=== PATIENT | female | born 1940 | race Caucasian/White ===

== ENCOUNTER 2018-07-19 08:46 | Emergency (ER) | payer MEDICARE, OTHER ==
[2018-07-19 08:59] VITALS: BP 146/71
--- NOTE | 2018-07-19 09:21 | UC ---
Lower Extremity/Ankle HPI - HPI Summary HPI Summary: 78 -year-old female who has a small callus on the medial aspect of her right second toe which has caused the toe to become hot red tender and swollen over the past 24 hours. She states it appears much better today. She denies any fever or chills and no red streaks. She has a [id number] diabetic. She also has a history of gout in the same toe over the past month however states this is different from gout. - History of Current Complaint Chief Complaint: UCLowerExtremity Stated Complaint: RT TOE INFECTION Time Seen by Provider: 07/19/18 09:20 Hx Obtained From: Patient ?: No Onset/Duration: Gradual Onset Severity Initially: Moderate Severity Currently: Mild Pain Intensity: 5 Aggravating Factor(s): Ambulation Alleviating Factor(s): Rest, Elevation Able to Bear Weight: Yes - Risk Factors Gout Risk Factors: Diabetes - Patient has a history of gout. - Allergies/Home Medications Allergies/Adverse Reactions: Allergies Allergy/AdvReac Type Severity Reaction Status Date / Time niacin Allergy Intermediate Flushing Verified 07/19/18 09:00 [id number]-Ogl Reductase Allergy Mild body aches Verified 07/19/18 09:00 Inhibitor bee venom protein (honey bee) Allergy Swelling Verified 07/19/18 09:01 influenza A (H1N1) virus Allergy Fatigue Verified 07/19/18 09:01 vaccine [id number] [From influenza A (H1N1)] Home Medications: Home Medications Calcium Carbonate [Calcium] 500 mg PO DAILY WITH MEAL 07/19/18 [History Confirmed 07/19/18] Dulaglutide [Trulicity] 1.5 mg SQ DAILY WITH MEAL 07/19/18 [History Confirmed ] Gout 1 mg PO SEE INSTRUCTIONS 07/19/18 [History Confirmed 07/19/18] Losartan/Hydrochlorothiazide [Losartan Potassium/Hydroc 100-25 mg] 1 tab PO DAILY WITH MEAL 07/19/18 [History Confirmed 07/19/18] Pravastatin (NF) [Pravachol (NF)] 20 mg PO 1700 07/19/18 [History Confirmed ] metFORMIN* [Glucophage 1000 MG TAB *] 2,000 mg PO 0800,1700 07/19/18 [History Confirmed 07/19/18] PMH/Surg Hx/FS Hx/Imm Hx Previously Healthy: Yes Endocrine History: Diabetes Cardiovascular History: Hypertension - Surgical History Surgical History: Yes Surgery Procedure, Year, and Place: Hysterectomy. cyst on spine - Family History Known Family History: Positive: Non-Contributory - Social History Alcohol Use: Occasionally Substance Use Type: None Smoking Status (MU): Never Smoked Tobacco Review of Systems All Other Systems Reviewed And Are Negative: Yes Skin: Positive: Other - Right second toe hot red and tender swollen last evening however has improved today according to the patient. Is Patient Immunocompromised?: No Physical Exam Triage Information Reviewed: Yes Appearance: Well-Appearing, No Pain Distress, Well-Nourished Vital Signs: Initial Vital Signs Temp 98.0 F 07/19/18 08:54 Pulse 95 07/19/18 08:54 Resp 20 07/19/18 08:54 BP 146/71 07/19/18 08:54 Pulse Ox 100 07/19/18 08:54 Vital Signs Reviewed: Yes Musculoskeletal Exam: Normal Neurological Exam: Normal Psychological Exam: Normal Skin: Positive: Other - Right second toe is mildly erythematous but not warm to touch, good peripheral pulses neuro sensation capillary refill. No red streaks. Second toe is mildly tender on palpation. There is no active drainage however she does have a ssmall scabbed area on the medial aspect. Lower Extremity Course/Dx - Course Course Of Treatment: Patient is comfortable here and I'm going to start her on an antibiotic as well as warm salt water soaks to follow-up with her primary care provider if no improvement in 3 or 4 days and to go to the ER if she has any worsening symptoms , fever or chills or red streaks. I also advised her if she loses sensation in her toe or turns blue she is to definitely go to the emergency room immediately. Patient is agreeable with plan of action. - Differential Dx/Diagnosis Provider Diagnosis: Cellulitis of second toe, right Discharge - Sign-Out/Discharge Documenting (check all that apply): Patient Departure All imaging exams completed and their final reports reviewed: No Studies - Discharge Plan Condition: Fair Disposition: HOME Prescriptions: Amoxicillin/Clavulanate TAB* [Augmentin TAB 875*] 875 mg PO BID 10 Days #20 tab Patient Education Materials: Foot Care for People with Diabetes (ED), Diabetic Foot Ulcers (ED) Referrals: Vaishali Lilly MD [Primary Care Provider] - Additional Instructions: Warm salt water soaks 4-6 times a day for 20 minutes each time. Wear white socks and keep the area open to the air. Follow-up in the emergency room if you develop fever, chills, red streaks appear put her leg. Elevate as much as possible. Follow-up with your primary care provider if no improvement in 3 or 4 days. - Billing Disposition and Condition Condition: FAIR Disposition: Home
== END 2018-07-19 09:35 | disposition home or self-care (01) ==
LOC: UCEAST 08:46
DX: L03.031 Cellulitis of right toe (principal); E11.9 Type 2 diabetes mellitus without complications; Z79.84 Long term (current) use of oral hypoglycemic drugs; I10 Essential (primary) hypertension; M10.9 Gout, unspecified; Z88.8 Allergy status to other drugs, medicaments and biological substances; Z91.030 Bee allergy status
CPT/HCPCS: 99212; G0463

== ENCOUNTER 2022-03-11 22:50 | Inpatient (IN) ==
[2022-03-12] MEDS ORDERED: Ondansetron 4 mg VIAL 2 MG/ML 2 ml VIAL IV ONE (00:46)
[2022-03-12] MEDS ORDERED: Morphine 4 MG/ML VIAL (1 ml) IV ONE ×2 (00:46→02:33)
[2022-03-12 04:39] LABS: ABS Lymphocytes 1.1 10^3/ul (1.0-4.8); ABS Monocytes 0.9 10^3/ul (0-0.8); ABS Neutrophils 10.2 10^3/ul (1.5-7.7); Eosinophil % 0.2 %; Hematocrit 33 % (35-47); Hemoglobin 11.1 g/dL (12.0-16.0); Lymphocyte % 9.1 %; Mean Corpuscular HGB Conc 33 g/dL (31-36); Mean Corpuscular Hemoglobin 32 pg (27-31); Mean Corpuscular Volume 95 fL (80-97); Mean Platelet Volume 7.7 fL (7.4-10.4); Platelet Count 296 10^3/uL (150-450); Red Blood Count 3.52 10^6 /uL (3.70-4.87); Red Cell Distribution Width 14 % (10-15); White Blood Count 12.2 10^3/uL (3.5-10.8)
[2022-03-12 05:05] LABS: Albumin 3.5 g/dL (3.2-5.2); CO2 Carbon Dioxide 24 mmol/L (22-32); Calcium 8.3 mg/dL (8.6-10.3); Chloride 98 mmol/L (101-111); Magnesium 1.8 mg/dL (1.9-2.7); Sodium 130 mmol/L (135-145)
[2022-03-12 05:11] LABS: ALT 26 U/L (7-52); Albumin/Globulin Ratio 1.3 (1-3); Alkaline Phosphatase 63 U/L (35-149); Blood Urea Nitrogen 27 mg/dL (6-24); Globulin 2.8 g/dL (2-4); Glucose 255 mg/dL (70-100); Total Protein 6.3 g/dL (6.4-8.9); eGFR CKD-EPI 45.5 (>60)
[2022-03-12] MEDS ORDERED: Magnesium Sulfate 2 gm BAG 2 GM/50 ML BAG IVPB ONE (05:21)
[2022-03-12 05:36] LABS: Anion Gap 8 mmol/L (2-11)
[2022-03-12] MEDS: Morphine 2 MG/ML SYRINGE IV PRN ×2 (05:50→09:47)
[2022-03-12] MEDS ORDERED: Dulaglutide (NF) 1.5 MG/0.5 ML SYRINGE SUBCUT SCH (06:00)
[2022-03-12] MEDS ORDERED: NS 0.9% 1000 ml BAG 1,000 ML IV SCH (06:30)
[2022-03-12 07:39] LABS: Potassium Redraw 4.8 mmol/L (3.5-5.0)
[2022-03-12] MEDS ORDERED: Metoclopramide 5 MG/ML VIAL (10 mg) IV PRN (10:34)
[2022-03-12] MEDS ORDERED: HYDROcodone/ACETAMIN 5/325 mg TAB PO PRN (10:34)
[2022-03-12] MEDS ORDERED: fentaNYL 100 mcg/2 ml 50 MCG/ML VIAL IV PRN (10:34)
[2022-03-12] MEDS ORDERED: Ondansetron 4 mg VIAL 2 MG/ML 2 ml VIAL IV PRN (10:34)
[2022-03-12] MEDS ORDERED: Buffered Lidocaine 1% SYRIN 1 ml INTRADERM ONE (10:34)
[2022-03-12] MEDS ORDERED: Sodium Citrate/Citric Acid LIQ 15 ML UDC PO ONE (10:34)
[2022-03-12] MEDS ORDERED: Naloxone 0.4 mg VIAL 0.4 mg/ml 1 ml VIAL IV PRN (10:34)
[2022-03-12 10:39] LABS: Osmolality Serum 293 mOsm/kg (275-295)
[2022-03-12 10:46] LABS: Calcium 8.6 mg/dL (8.6-10.3); Potassium 4.6 mmol/L (3.5-5.0)
[2022-03-12] MEDS ORDERED: Albuterol 2.5mg/3 ml (0.083%) NEB.SOLN INH ONE ×2 (10:48→11:05)
[2022-03-12 10:51] LABS: eGFR CKD-EPI 43.7 (>60)
[2022-03-12] MEDS ORDERED: ceFAZolin 2 GM in NS PREMIX 2 GM/100 ML BAG IVPB ONE (10:55)
[2022-03-12] MEDS ORDERED: Lactated Ringers 1000 ml BAG 1,000 ML IV SCH (11:00)
[2022-03-12] MEDS ORDERED: Propofol 10 MG/ML 20 ML BTL ONE (12:45)
[2022-03-12] MEDS ORDERED: Lidocaine 2% PF 5 ML VIAL ONE (12:45)
[2022-03-12] MEDS ORDERED: Midazolam 2 mg/2 ml VIAL 1 mg/ml 2 ml VIAL (2 mg) ONE (12:45)
[2022-03-12] MEDS ORDERED: Phenylephrine IV 10 MG/ML 1 ml VIAL ONE (12:45)
[2022-03-12] MEDS ORDERED: fentaNYL 100 mcg/2 ml 50 MCG/ML VIAL ONE (12:45)
[2022-03-12] MEDS ORDERED: Glycopyrrolate IV 0.2 MG/ML 1 ML VIAL ONE (14:23)
[2022-03-12] MEDS ORDERED: Dexamethasone IV 4 MG/ML VIAL 1 ml VIAL ONE (14:23)
[2022-03-12] MEDS ORDERED: Ondansetron 4 mg VIAL 2 MG/ML 2 ml VIAL ONE (14:23)
[2022-03-12] MEDS ORDERED: HYDROcodone/ACETAMIN 5/325 mg TAB ONE (16:04)
[2022-03-12] MEDS: CMC:Pravastatin 20 mg TAB (NF) PO SCH (18:12)
[2022-03-12] MEDS: ceFAZolin 1 GM X 3 DOSES POST-OP Q8H (AddVan) IVPB SCH (22:39)
[2022-03-12 22:47] LABS: Urine Osmo 590 mOsm/kg (150-1150)
[2022-03-13] MEDS: Morphine 2 MG/ML SYRINGE IV PRN (01:19)
[2022-03-13] MEDS: ceFAZolin 1 GM X 3 DOSES POST-OP Q8H (AddVan) IVPB SCH ×2 (05:45→13:33)
[2022-03-13 05:57] LABS: Hematocrit 27 % (35-47); Hemoglobin 9.2 g/dL (12.0-16.0); Mean Corpuscular HGB Conc 34 g/dL (31-36); Mean Corpuscular Hemoglobin 32 pg (27-31); Mean Corpuscular Volume 95 fL (80-97); Mean Platelet Volume 7.8 fL (7.4-10.4); Platelet Count 272 10^3/uL (150-450); Red Blood Count 2.88 10^6 /uL (3.70-4.87); Red Cell Distribution Width 13 % (10-15); White Blood Count 11.6 10^3/uL (3.5-10.8)
[2022-03-13 06:21] LABS: Potassium 4.8 mmol/L (3.5-5.0); eGFR CKD-EPI 43.7 (>60)
[2022-03-13] MEDS ORDERED: Dextrose 50% Syringe 50 ml 25 GM/50 ML SYRINGE IV PUSH PRN (07:44)
[2022-03-13] MEDS ORDERED: Metoclopramide 5 MG/ML VIAL (10 mg) ONE (08:47)
[2022-03-13] MEDS: Enoxaparin 40 MG/0.4 ML SYR SUBCUT SCH (09:44)
[2022-03-13] MEDS ORDERED: Ondansetron 4 mg VIAL 2 MG/ML 2 ml VIAL IV PRN (13:54)
[2022-03-13] MEDS ORDERED: Ondansetron 4 mg VIAL 2 MG/ML 2 ml VIAL ONE (14:04)
[2022-03-13] MEDS: CMC:Pravastatin 20 mg TAB (NF) PO SCH (18:04)
[2022-03-13] MEDS ORDERED: Famotidine IV 10 MG/ML 2 ml VIAL (20 mg) IV SLOW PU ONE (18:08)
[2022-03-13] MEDS ORDERED: Calcium Carb (TUMS) 500 mg CHEW TAB PO ONE (18:08)
[2022-03-14 06:00] LABS: Hematocrit 26 % (35-47); Hemoglobin 8.5 g/dL (12.0-16.0); Mean Corpuscular HGB Conc 33 g/dL (31-36); Mean Corpuscular Hemoglobin 31 pg (27-31); Mean Corpuscular Volume 95 fL (80-97); Mean Platelet Volume 7.5 fL (7.4-10.4); Platelet Count 296 10^3/uL (150-450); Red Blood Count 2.75 10^6 /uL (3.70-4.87); Red Cell Distribution Width 14 % (10-15); White Blood Count 12.7 10^3/uL (3.5-10.8)
[2022-03-14 06:19] LABS: Calcium 8.1 mg/dL (8.6-10.3); Magnesium 2.1 mg/dL (1.9-2.7); Potassium 4.6 mmol/L (3.5-5.0)
[2022-03-14 06:25] LABS: eGFR CKD-EPI 38.5 (>60)
[2022-03-14] MEDS ORDERED: PTO: Dulaglutide (NF) 1.5 MG/0.5 ML SYRINGE SUBCUT SCH (09:00)
[2022-03-14] MEDS: Enoxaparin 40 MG/0.4 ML SYR SUBCUT SCH (09:16)
[2022-03-14] MEDS ORDERED: Lactated Ringers 1000 ml BAG 1,000 ML IV SCH ×2 (11:00→13:41)
[2022-03-14 12:10] LABS: Urine Appearance Cloudy; Urine Bilirubin Negative (Negative); Urine Blood Negative (Negative); Urine Color Straw; Urine Glucose Negative (Negative); Urine Ketones Negative (Negative); Urine Nitrite Negative (Negative); Urine Protein Negative (Negative); Urine Specific Gravity 1.008 (1.002-1.030); Urine Urobilinogen Negative (Negative)
[2022-03-14] MEDS: CMC:Pravastatin 20 mg TAB (NF) PO SCH (18:02)
[2022-03-14] MEDS: Calcium Carb (TUMS) 500 mg CHEW TAB PO SCH (18:03)
[2022-03-14 18:05] LABS: Hematocrit 27 % (35-47); Hemoglobin 8.7 g/dL (12.0-16.0)
[2022-03-15 07:36] LABS: Hematocrit 24 % (35-47); Hemoglobin 7.7 g/dL (12.0-16.0); Mean Corpuscular HGB Conc 32 g/dL (31-36); Mean Corpuscular Hemoglobin 31 pg (27-31); Mean Corpuscular Volume 95 fL (80-97); Platelet Count 304 10^3/uL (150-450); Red Cell Distribution Width 14 % (10-15)
[2022-03-15 08:12] LABS: Magnesium 2.1 mg/dL (1.9-2.7); Potassium 4.8 mmol/L (3.5-5.0); eGFR CKD-EPI 47.9 (>60)
[2022-03-15] MEDS: Calcium Carb (TUMS) 500 mg CHEW TAB PO SCH ×3 (08:36→17:22)
[2022-03-15] MEDS: Enoxaparin 40 MG/0.4 ML SYR SUBCUT SCH (09:10)
[2022-03-15 10:39] LABS: Ferritin 230.3 ng/mL (11-307)
[2022-03-15] MEDS ORDERED: Magnesium Hydroxide LIQ 30 ML UDC PO PRN (10:43)
[2022-03-15] MEDS ORDERED: Senna TAB 8.6 mg TAB PO PRN (10:43)
[2022-03-15] MEDS: CMC:Pravastatin 20 mg TAB (NF) PO SCH (17:23)
[2022-03-15] MEDS ORDERED: Morphine 2 MG/ML SYRINGE IV ONE (22:21)
[2022-03-16 06:17] LABS: Hematocrit 25 % (35-47); Hemoglobin 8.2 g/dL (12.0-16.0); Mean Corpuscular HGB Conc 33 g/dL (31-36); Mean Corpuscular Hemoglobin 31 pg (27-31); Mean Corpuscular Volume 96 fL (80-97); Mean Platelet Volume 7.4 fL (7.4-10.4); Platelet Count 337 10^3/uL (150-450); Red Blood Count 2.62 10^6 /uL (3.70-4.87); Red Cell Distribution Width 14 % (10-15); White Blood Count 11.5 10^3/uL (3.5-10.8)
[2022-03-16 06:32] LABS: ABS Basophils 0.1 10^3/ul (0-0.2); ABS Eosinophils 0.5 10^3/ul (0-0.6); ABS Lymphocytes 2.3 10^3/ul (1.0-4.8); ABS Monocytes 0.9 10^3/ul (0-0.8); ABS Neutrophils 7.8 10^3/ul (1.5-7.7); Eosinophil % 4.1 %; Lymphocyte % 19.7 %; Nucleated Red Blood Cells % 0.2
[2022-03-16 06:40] LABS: Calcium 8.2 mg/dL (8.6-10.3); Potassium 4.7 mmol/L (3.5-5.0); eGFR CKD-EPI 48.4 (>60)
[2022-03-16] MEDS: Calcium Carb (TUMS) 500 mg CHEW TAB PO SCH ×3 (07:53→16:59)
[2022-03-16] MEDS ORDERED: Magnesium CITRATE LIQ 300 ML BTL PO ONE (09:11)
[2022-03-16] MEDS: Enoxaparin 40 MG/0.4 ML SYR SUBCUT SCH (11:27)
[2022-03-16] MEDS: CMC:Pravastatin 20 mg TAB (NF) PO SCH (17:38)
[2022-03-16] MEDS: Senna TAB 8.6 mg TAB PO SCH (20:17)
[2022-03-17] MEDS ORDERED: Morphine 2 MG/ML SYRINGE IV PRN (00:15)
[2022-03-17 06:27] LABS: Hematocrit 26 % (35-47); Hemoglobin 8.6 g/dL (12.0-16.0); Mean Corpuscular HGB Conc 33 g/dL (31-36); Mean Corpuscular Hemoglobin 32 pg (27-31); Mean Corpuscular Volume 95 fL (80-97); Mean Platelet Volume 7.2 fL (7.4-10.4); Platelet Count 386 10^3/uL (150-450); Red Blood Count 2.72 10^6 /uL (3.70-4.87); Red Cell Distribution Width 14 % (10-15); White Blood Count 11.6 10^3/uL (3.5-10.8)
[2022-03-17] MEDS: Calcium Carb (TUMS) 500 mg CHEW TAB PO SCH ×3 (07:53→17:30)
[2022-03-17] MEDS: Enoxaparin 40 MG/0.4 ML SYR SUBCUT SCH (09:36)
[2022-03-17] MEDS: CMC:Pravastatin 20 mg TAB (NF) PO SCH (17:31)
[2022-03-17] MEDS: Senna TAB 8.6 mg TAB PO SCH (20:57)
[2022-03-18] MEDS ORDERED: Morphine 2 MG/ML SYRINGE IV ONE (00:04)
[2022-03-18] MEDS: Calcium Carb (TUMS) 500 mg CHEW TAB PO SCH ×3 (08:01→17:47)
[2022-03-18 09:30] LABS: Hematocrit 27 % (35-47); Mean Corpuscular HGB Conc 33 g/dL (31-36); Mean Corpuscular Hemoglobin 32 pg (27-31); Mean Corpuscular Volume 96 fL (80-97); Platelet Count 390 10^3/uL (150-450); Red Cell Distribution Width 14 % (10-15); White Blood Count 8.5 10^3/uL (3.5-10.8)
[2022-03-18 09:50] LABS: Calcium 8.6 mg/dL (8.6-10.3); Potassium 4.6 mmol/L (3.5-5.0); eGFR CKD-EPI 46.4 (>60)
[2022-03-18 10:53] LABS: ABS Basophils 0.1 10^3/ul (0-0.2); ABS Eosinophils 0.3 10^3/ul (0-0.6); ABS Lymphocytes 1.5 10^3/ul (1.0-4.8); ABS Monocytes 0.6 10^3/ul (0-0.8); ABS Neutrophils 6.1 10^3/ul (1.5-7.7); Eosinophil % 3.4 %; Lymphocyte % 17.7 %; Nucleated Red Blood Cells % 0.2; RBC Morphology Normal (Normal)
[2022-03-18] MEDS: Enoxaparin 40 MG/0.4 ML SYR SUBCUT SCH (12:16)
[2022-03-18] MEDS: CMC:Pravastatin 20 mg TAB (NF) PO SCH (17:47)
[2022-03-18] MEDS: Senna TAB 8.6 mg TAB PO SCH (21:15)
[2022-03-19 07:35] VITALS: BP 143/81
[2022-03-19] MEDS: Calcium Carb (TUMS) 500 mg CHEW TAB PO SCH (09:15)
[2022-03-19 09:47] LABS: Rapid COVID-19 Molecular Undetected (Undetected)
== END 2022-03-19 10:46 | DRG 481 ==
LOC: EDHOLD 22:50 → ED 22:50 → SUATTDRO 03-12 04:08 → EDHOLD 03-12 07:27 → SSU 03-12 08:38 → SUATTDRO 03-13 13:52
PROVIDERS: ADMIT Hospitalist; ATTEND Hospitalist